=== PATIENT | male | born 1940 | race Caucasian/White ===

== ENCOUNTER 2020-05-11 06:55 | Observation (INO) | payer MEDICARE ==
[2020-05-07 09:33] VITALS: BP 126/90
[2020-05-07 12:28] LABS: BASOPHILS % (AUTO) 1.5 % (0.0-5.0); HEMATOCRIT 43.8 % (42-54); LYMPHOCYTES % (AUTO) 12.7 % (21.0-51.0); MEAN CORPUSCULAR HEMOGLOBIN 34.3 pg (27.0-33.0); MEAN CORPUSCULAR HGB CONC 33.1 g/dL (32.0-36.0); MEAN CORPUSCULAR VOLUME 103.5 fL (79-99); MONOCYTES % (AUTO) 9.1 % (3.0-13.0); NEUTROPHILS % (AUTO) 67.4 % (40.0-77.0); PLATELET COUNT (AUTO) 183 K/uL (130-400); RED BLOOD CELL COUNT(AUTO) 4.23 MIL/uL (4.50-6.20); RED CELL DISTRIBUTION WIDTH 16.7 % (11.0-15.5); WHITE BLOOD COUNT (AUTO) 6.6 K/uL (4.8-10.8)
[2020-05-07 12:44] LABS: CREATININE 1.5 mg/dL (0.5-1.5); POTASSIUM 3.3 mmol/L (3.5-5.1)
[2020-05-11] VITALS (11 sets, daily range): BP systolic 100–118; BP diastolic 53–85
[~2020-05-11] VITALS: Ht 190.5 cm; Wt 83.5 kg
[~2020-05-11 06:55] MED LIST: ALLO300T2 PO; AMIO200T6 PO; APIX5TAB PO; ASPI-1197 PO; CARV25TA PO; FURO40TA5 PO; MIDO10TA PO; PRAM1TAB7 PO; ROSU20TA31 PO; SPIR25TA6 PO
[2020-05-11] MEDS ORDERED: SODIUM CHLORIDE 0.9% 1000ML 1,000 ML IV ONE (07:21)
[2020-05-11] MEDS ORDERED: SODIUM CHLORIDE 0.9% 1000ML 1,000 ML IV SCH (08:00)
[2020-05-11] MEDS ORDERED: BUPIVACAINE/PF 0.25% 30ML VIAL IJ ONE (09:22)
[2020-05-11] MEDS ORDERED: MIDAZOLAM HCL 1 MG/ML 2ML VIAL ONE ×2 (09:23→11:03)
[2020-05-11] MEDS ORDERED: IODIXANOL 320 MG/ML 100 ML VIAL ONE (09:23)
[2020-05-11] MEDS ORDERED: MEPERIDINE-PF 25 MG/ML SYG ONE ×2 (09:23→11:03)
[2020-05-11] MEDS ORDERED: CEFAZOLIN SODIUM 1 GM VIAL ONE (09:23)
[2020-05-11] MEDS ORDERED: LIDOCAINE HCL 1% MDV 50ML VIAL ONE (09:23)
[2020-05-11 10:02] LABS: CREATININE 1.6 mg/dL (0.5-1.5); POTASSIUM 3.9 mmol/L (3.5-5.1)
[2020-05-11 10:04] LABS: INR 0.97 (0.85-1.15); PARTIAL THROMBOPLASTIN TIME 27.1 SEC (26.3-35.5); PROTHROMBIN TIME 10.5 SEC (9.6-11.6)
[2020-05-11] MEDS ORDERED: ACETAMINOPHEN-CODEINE 300/30MG TAB PO PRN (12:45)
[2020-05-11] MEDS ORDERED: MIDODRINE HCL 5 MG TABLET PO PRN (13:15)
[2020-05-11] MEDS: FUROSEMIDE 40 MG TABLET PO SCH (19:56)
[2020-05-11] MEDS: ACETAMINOPHEN-CODEINE 300/30MG TAB PO PRN (19:59)
[2020-05-11] MEDS: CARVEDILOL 25 MG TABLET PO SCH (21:00)
[2020-05-12 04:08] VITALS: BP 115/68
[2020-05-12] MEDS: ACETAMINOPHEN-CODEINE 300/30MG TAB PO PRN (05:17)
[2020-05-12 08:00] VITALS: BP 96/58
[2020-05-12] MEDS: FUROSEMIDE 40 MG TABLET PO SCH (08:21)
[2020-05-12] MEDS: CARVEDILOL 25 MG TABLET PO SCH (08:23)
[2020-05-12] MEDS ORDERED: ALLOPURINOL 300 MG TABLET PO SCH (09:00)
[2020-05-12] MEDS ORDERED: PRAMIPEXOLE DI-HCL 0.25 MG TABLET PO SCH (09:00)
[2020-05-12] MEDS ORDERED: SPIRONOLACTONE 25 MG TAB PO SCH (09:00)
[2020-05-12] MEDS ORDERED: ATORVASTATIN CALCIUM 40 MG TABLET PO SCH (09:00)
[2020-05-12] MEDS ORDERED: AMIODARONE HCL 200 MG TABLET PO SCH (09:00)
[2020-05-12 13:08] VITALS: BP 95/61
== END 2020-05-12 15:21 | disposition home or self-care (01) ==
LOC: DAH 06:55 → DAHIP 06:56 → 4DH 13:00
PROVIDERS: ADMIT Internal Medicine; ATTEND Internal Medicine
DX: I11.0 Hypertensive heart disease with heart failure (principal); I50.42 Chronic combined systolic (congestive) and diastolic (congestive) heart failure; I48.21 Permanent atrial fibrillation; I25.5 Ischemic cardiomyopathy; E78.5 Hyperlipidemia, unspecified; K76.9 Liver disease, unspecified; G47.33 Obstructive sleep apnea (adult) (pediatric); M10.9 Gout, unspecified; Z85.46 Personal history of malignant neoplasm of prostate; Z92.3 Personal history of irradiation; Z99.89 Dependence on other enabling machines and devices; Z90.49 Acquired absence of other specified parts of digestive tract; Z79.01 Long term (current) use of anticoagulants; Z79.899 Other long term (current) drug therapy; Z88.8 Allergy status to other drugs, medicaments and biological substances
CPT/HCPCS: 33225; 33249; 36415 ×2; 71045; 80048 ×2; 85025; 85610; 85730; 93005; A4215; A4216; A4221; A4222; A4223 ×3; A4606; A4663; C1769; C1882; C1895; C1900; G0378 ×19; J0690; J2175 ×2; J2250 ×2; J3490 ×2; J7030 ×2; Q9967; 99156; 99157

== ENCOUNTER 2020-10-11 14:17 | Inpatient (IN) | payer MEDICARE ==
[2020-10-11] VITALS (15 sets, daily range): BP systolic 82–127; BP diastolic 47–69
[~2020-10-11] VITALS: Ht 162.6 cm; Wt 73.9 kg
[~2020-10-11 14:17] MED LIST changes: -AMIO200T6 PO; +AMIO200T68 PO; -ASPI-1197 PO; -SPIR25TA6 PO
[2020-10-11] MEDS ORDERED: 0.9% NACL 250ML 250 ML IV ONE ×3 (15:04→17:26)
[2020-10-11 15:41] LABS: ABG BASE EXCESS -18.5 mmol/L (-2.0-3.0); ABG HCO3 8.3 mmol/L (21.0-28.0); ABG OXYGEN SATURATION 95.9 % (95.0-99.0); ABG PCO2 24 mmHg (35-48)
[2020-10-11 15:41] LABS: BASOPHILS % (AUTO) 1.5 % (0.0-5.0); EOSINOPHILS % (AUTO) 0.3 % (0.0-8.0); HEMATOCRIT 49.1 % (42-54); LYMPHOCYTES % (AUTO) 8.7 % (21.0-51.0); MEAN CORPUSCULAR HEMOGLOBIN 32.7 pg (27.0-33.0); MEAN CORPUSCULAR HGB CONC 32.6 g/dL (32.0-36.0); MEAN CORPUSCULAR VOLUME 100.2 fL (79-99); MONOCYTES % (AUTO) 7.6 % (3.0-13.0); NEUTROPHILS % (AUTO) 71.9 % (40.0-77.0); NUCLEATED RED BLOOD CELLS 0.6 % (0.0-0.19); PLATELET COUNT (AUTO) 107 K/uL (130-400); RED CELL DISTRIBUTION WIDTH 19.2 % (11.0-15.5); WHITE BLOOD COUNT (AUTO) 7.9 K/uL (4.8-10.8)
[2020-10-11 15:53] LABS: INR 1.03 (0.85-1.15); PROTHROMBIN TIME 11.2 SEC (9.6-11.6)
[2020-10-11 15:54] LABS: PARTIAL THROMBOPLASTIN TIME 33.4 SEC (26.3-35.5)
[2020-10-11 15:56] LABS: BILIRUBIN,TOTAL 1.6 mg/dL (0.2-1.0); CREATININE 5.8 mg/dL (0.5-1.5); TOTAL PROTEIN, SERUM 7.4 g/dL (6.0-8.3)
[2020-10-11 16:02] LABS: POTASSIUM 6.2 mmol/L (3.5-5.1)
[2020-10-11 16:41] LABS: CREATININE 5.7 mg/dL (0.5-1.5); POTASSIUM 5.9 mmol/L (3.5-5.1)
[2020-10-11] MEDS ORDERED: KAYEXALATE 15GM/60ML ONE (17:28)
[2020-10-11] MEDS ORDERED: SODIUM BICARB 50MEQ 50ML VIAL 50 ML ONE ×2 (17:28→23:12)
[2020-10-11] MEDS ORDERED: CALCIUM GLUC 1GM/10ML VIAL IV ONE (17:28)
[2020-10-11] MEDS ORDERED: DEXTROSE 50%-WATER 50 ML DISP.SYRIN IV ONE (17:28)
[2020-10-11] MEDS ORDERED: INSULIN HUMULIN R 100 UNIT/ML 3ML ONE (17:29)
[2020-10-11] MEDS ORDERED: 0.9%NACL 50ML 50 ML IV ONE (17:30)
[2020-10-11] MEDS ORDERED: NOREPINEPHRIN 4MG/NS 250ML 250 ML IV ONE (17:36)
[2020-10-11] MEDS ORDERED: NOREPINEPHRIN 4MG/NS 250ML 250 ML IV SCH (18:15)
[2020-10-11] MEDS ORDERED: ALBUTEROL INHALER 90MCG/INH IH ONE ×2 (18:21→18:50)
[2020-10-11] MEDS ORDERED: SODIUM BICARB 8.4% 50ML SYRING 150 MEQ in DEXTROSE 5%-WATER 1,000 ML IVP STA (20:42)
[2020-10-11] MEDS: SODIUM BICARB 50MEQ 50ML VIAL IV STA (20:44)
[2020-10-11] MEDS ORDERED: SODIUM CHLORIDE 1,000 MG TAB PO STA (21:44)
[2020-10-11] MEDS: MIDODRINE HCL 5 MG TABLET PO SCH (23:19)
[2020-10-11] MEDS: CEFTRIAXONE 1G VIAL IVP SCH (23:19)
[2020-10-11] MEDS: AZITHROMYCIN 250 MG TABLET PO SCH (23:20)
[2020-10-11] MEDS: DIGOXIN 125 MCG TABLET PO SCH (23:20)
[2020-10-11] MEDS: PRAMIPEXOLE DI-HCL 0.25 MG TABLET PO SCH (23:20)
[2020-10-12] VITALS (92 sets, daily range): BP systolic 76–165; BP diastolic 38–95
[2020-10-12] MEDS ORDERED: ALBUTEROL 0.083% 2.5 MG/3 ML INH IH PRN (00:45)
[2020-10-12] MEDS ORDERED: BENZONATATE 100 MG CAPSULE PO PRN (00:45)
[2020-10-12] MEDS: SODIUM BICARB 50MEQ 50ML VIAL IV STA (01:08)
[2020-10-12 03:09] LABS: BASOPHILS % (AUTO) 1.4 % (0.0-5.0); EOSINOPHILS % (AUTO) 0.5 % (0.0-8.0); HEMATOCRIT 44.5 % (42-54); LYMPHOCYTES % (AUTO) 5.6 % (21.0-51.0); MEAN CORPUSCULAR HEMOGLOBIN 32.7 pg (27.0-33.0); MEAN CORPUSCULAR HGB CONC 34.2 g/dL (32.0-36.0); MEAN CORPUSCULAR VOLUME 95.7 fL (79-99); MONOCYTES % (AUTO) 7.5 % (3.0-13.0); NEUTROPHILS % (AUTO) 76.9 % (40.0-77.0); NUCLEATED RED BLOOD CELLS 0.7 % (0.0-0.19); PLATELET COUNT (AUTO) 106 K/uL (130-400); RED BLOOD CELL COUNT(AUTO) 4.65 MIL/uL (4.50-6.20); RED CELL DISTRIBUTION WIDTH 18.6 % (11.0-15.5); WHITE BLOOD COUNT (AUTO) 8.6 K/uL (4.8-10.8)
[2020-10-12] MEDS ORDERED: APIX2.5T PO (03:16)
[2020-10-12] MEDS ORDERED: FURO40TA5 PO (03:18)
[2020-10-12] MEDS ORDERED: DIGO125T71 PO (03:23)
[2020-10-12] MEDS ORDERED: SPIR50TA5 PO (03:24)
[2020-10-12] MEDS ORDERED: LISI5TAB21 PO (03:25)
[2020-10-12] MEDS ORDERED: METO-391 PO (03:26)
[2020-10-12 03:28] LABS: ALBUMIN 3.3 g/dL (3.5-5.0); BILIRUBIN,TOTAL 1.5 mg/dL (0.2-1.0); CREATININE 4.9 mg/dL (0.5-1.5); CRP QUANTITATIVE 6.2 mg/L (0.00-9.0); MAGNESIUM 2.5 mg/dL (1.80-2.40); TOTAL PROTEIN, SERUM 6.1 g/dL (6.0-8.3)
[2020-10-12 04:31] LABS: ABG BASE EXCESS -3.9 mmol/L (-2.0-3.0); ABG HCO3 19.2 mmol/L (21.0-28.0); ABG OXYGEN SATURATION 98.4 % (95.0-99.0); ABG PCO2 30 mmHg (35-48)
[2020-10-12] MEDS: CEFTRIAXONE 1G VIAL IVP SCH ×2 (07:34→18:46)
[2020-10-12] MEDS: MIDODRINE HCL 5 MG TABLET PO SCH ×3 (08:13→21:00)
[2020-10-12] MEDS: APIXABAN 5 MG TABLET PO SCH ×2 (08:13→21:00)
[2020-10-12] MEDS: METOPROLOL TARTRATE 50 MG TAB PO SCH ×2 (08:14→21:00)
[2020-10-12] MEDS: SPIRONOLACTONE 25 MG TAB PO SCH (08:14)
[2020-10-12] MEDS ORDERED: ENOXAPARIN SODIUM 40 MG/0.4 ML SYRINGE SQ SCH (09:00)
[2020-10-12] MEDS: SODIUM BICARB 8.4% 50ML SYRING 150 MEQ in DEXTROSE 5%-WATER 1,000 ML IVP SCH ×2 (11:52→15:40)
[2020-10-12] MEDS: PRAMIPEXOLE DI-HCL 0.25 MG TABLET PO SCH (21:00)
[2020-10-12] MEDS: ATORVASTATIN 40 MG TABLET PO SCH (21:00)
[2020-10-12] MEDS: AZITHROMYCIN 250 MG TABLET PO SCH (21:00)
[2020-10-13] VITALS (28 sets, daily range): BP systolic 74–147; BP diastolic 42–102
[2020-10-13 04:25] LABS: BASOPHILS % (AUTO) 1.4 % (0.0-5.0); EOSINOPHILS % (AUTO) 1.1 % (0.0-8.0); HEMATOCRIT 44.5 % (42-54); LYMPHOCYTES % (AUTO) 10.7 % (21.0-51.0); MEAN CORPUSCULAR HGB CONC 33.3 g/dL (32.0-36.0); MEAN CORPUSCULAR VOLUME 96.1 fL (79-99); MONOCYTES % (AUTO) 14.2 % (3.0-13.0); NEUTROPHILS % (AUTO) 70.6 % (40.0-77.0); PLATELET COUNT (AUTO) 97 K/uL (130-400); RED BLOOD CELL COUNT(AUTO) 4.63 MIL/uL (4.50-6.20); RED CELL DISTRIBUTION WIDTH 18.6 % (11.0-15.5)
[2020-10-13 04:34] LABS: ALBUMIN 3.1 g/dL (3.5-5.0); CREATININE 3.3 mg/dL (0.5-1.5); CRP QUANTITATIVE 7.5 mg/L (0.00-9.0); MAGNESIUM 2.3 mg/dL (1.80-2.40); PHOSPHORUS 7.1 mg/dL (2.5-4.9); POTASSIUM 3.3 mmol/L (3.5-5.1)
[2020-10-13] MEDS: CEFTRIAXONE 1G VIAL IVP SCH ×2 (06:47→19:57)
[2020-10-13] MEDS: MIDODRINE HCL 5 MG TABLET PO SCH ×3 (08:16→21:22)
[2020-10-13] MEDS: METOPROLOL TARTRATE 50 MG TAB PO SCH ×2 (08:17→21:21)
[2020-10-13] MEDS: DIGOXIN 125 MCG TABLET PO SCH (08:17)
[2020-10-13] MEDS: APIXABAN 5 MG TABLET PO SCH ×2 (08:17→21:21)
[2020-10-13] MEDS: SPIRONOLACTONE 25 MG TAB PO SCH (08:18)
[2020-10-13] MEDS ORDERED: KCL 20 MEQ ERTAB PO SCH (11:15)
[2020-10-13 19:16] LABS: BASOPHILS % (AUTO) 1.6 % (0.0-5.0); EOSINOPHILS % (AUTO) 0.9 % (0.0-8.0); HEMATOCRIT 45.2 % (42-54); MEAN CORPUSCULAR HEMOGLOBIN 32.9 pg (27.0-33.0); MEAN CORPUSCULAR HGB CONC 33.4 g/dL (32.0-36.0); MEAN CORPUSCULAR VOLUME 98.5 fL (79-99); MONOCYTES % (AUTO) 12.8 % (3.0-13.0); NEUTROPHILS % (AUTO) 73.9 % (40.0-77.0); PLATELET COUNT (AUTO) 92 K/uL (130-400); RED BLOOD CELL COUNT(AUTO) 4.59 MIL/uL (4.50-6.20); RED CELL DISTRIBUTION WIDTH 18.8 % (11.0-15.5); WHITE BLOOD COUNT (AUTO) 7.6 K/uL (4.8-10.8)
[2020-10-13] MEDS: PRAMIPEXOLE DI-HCL 0.25 MG TABLET PO SCH (20:02)
[2020-10-13] MEDS: ATORVASTATIN 40 MG TABLET PO SCH (21:26)
[2020-10-13] MEDS: AZITHROMYCIN 250 MG TABLET PO SCH (21:58)
[2020-10-14] VITALS (7 sets, daily range): BP systolic 107–141; BP diastolic 49–70
[2020-10-14] MEDS ORDERED: ACETAMINOPHEN 325 MG TAB ONE ×2 (02:10→02:19)
[2020-10-14] MEDS ORDERED: ONDANSETRON 4MG TABLET ONE (02:11)
[2020-10-14] MEDS ORDERED: ACETAMINOPHEN 325 MG TAB PO PRN (02:15)
[2020-10-14] MEDS ORDERED: ONDANSETRON 4MG TABLET PO PRN (02:15)
[2020-10-14 03:43] LABS: MEAN CORPUSCULAR HEMOGLOBIN 32.5 pg (27.0-33.0); MEAN CORPUSCULAR HGB CONC 33.4 g/dL (32.0-36.0); MEAN CORPUSCULAR VOLUME 97.1 fL (79-99); PLATELET COUNT (AUTO) 99 K/uL (130-400); RED BLOOD CELL COUNT(AUTO) 4.53 MIL/uL (4.50-6.20); RED CELL DISTRIBUTION WIDTH 18.6 % (11.0-15.5); WHITE BLOOD COUNT (AUTO) 6.5 K/uL (4.8-10.8)
[2020-10-14 03:57] LABS: ALBUMIN 3.1 g/dL (3.5-5.0); CREATININE 2.6 mg/dL (0.5-1.5); CRP QUANTITATIVE 9.7 mg/L (0.00-9.0); PHOSPHORUS 4.7 mg/dL (2.5-4.9); TOTAL PROTEIN, SERUM 6.1 g/dL (6.0-8.3)
[2020-10-14 04:24] LABS: BAND NEUTROPHILS % (MANUAL) 1 % (0-2); BASOPHILS % (MANUAL) 1 % (0-2); LYMPHOCYTES % (MANUAL) 12 % (22-44); MAN.DIFF COMMENT-IMPRESSION MANUAL DIFFERENTIAL; MONOCYTES % (MANUAL) 8 % (2-9); SEGMENTED NEUTROPHILS % 78 % (40-70)
[2020-10-14 04:25] LABS: PLATELET MORPHOLOGY COMMENT DECREASED
[2020-10-14] MEDS: CEFTRIAXONE 1G VIAL IVP SCH (06:54)
[2020-10-14] MEDS: APIXABAN 5 MG TABLET PO SCH (08:56)
[2020-10-14] MEDS: SPIRONOLACTONE 25 MG TAB PO SCH (08:57)
[2020-10-14] MEDS: METOPROLOL TARTRATE 50 MG TAB PO SCH (08:57)
[2020-10-14] MEDS: MIDODRINE HCL 5 MG TABLET PO SCH ×2 (08:57→14:02)
[2020-10-14] MEDS ORDERED: DOXYCYCLINE HYCLATE 100 MG TABLET PO SCH (21:00)
== END 2020-10-14 17:50 | DRG 177 ==
LOC: EDH 14:17 → EDHIP 18:08 → 2BH 20:04
PROVIDERS: ADMIT Internal Medicine; ATTEND Internal Medicine
PROC: 5A09357 Assistance with Respiratory Ventilation, Less than 24 Consecutive Hours, Continuous Positive Airway Pressure (ICD-10-PCS; principal; 2020-10-12)
PROC: 5A09357 Assistance with Respiratory Ventilation, Less than 24 Consecutive Hours, Continuous Positive Airway Pressure (ICD-10-PCS; 2020-10-13)
DX: U07.1 COVID-19 (principal); J96.01 Acute respiratory failure with hypoxia; N17.9 Acute kidney failure, unspecified; I48.20 Chronic atrial fibrillation, unspecified; E87.2 Acidosis; E87.1 Hypo-osmolality and hyponatremia; I13.0 Hypertensive heart and chronic kidney disease with heart failure and stage 1 through stage 4 chronic kidney disease, or unspecified chronic kidney disease; J44.0 Chronic obstructive pulmonary disease with (acute) lower respiratory infection; N39.0 Urinary tract infection, site not specified; E87.0 Hyperosmolality and hypernatremia; E87.5 Hyperkalemia; G47.33 Obstructive sleep apnea (adult) (pediatric); G25.81 Restless legs syndrome; N18.2 Chronic kidney disease, stage 2 (mild); M10.9 Gout, unspecified; E86.0 Dehydration; I25.10 Atherosclerotic heart disease of native coronary artery without angina pectoris; I95.9 Hypotension, unspecified; I50.9 Heart failure, unspecified; E78.5 Hyperlipidemia, unspecified; R53.81 Other malaise; K76.9 Liver disease, unspecified; I71.4 Abdominal aortic aneurysm, without rupture; Z95.2 Presence of prosthetic heart valve; Z88.8 Allergy status to other drugs, medicaments and biological substances; Z79.01 Long term (current) use of anticoagulants; Z79.4 Long term (current) use of insulin; Z79.899 Other long term (current) drug therapy; Z85.46 Personal history of malignant neoplasm of prostate; Z86.79 Personal history of other diseases of the circulatory system; Z95.1 Presence of aortocoronary bypass graft; Z95.810 Presence of automatic (implantable) cardiac defibrillator
CPT/HCPCS: 36415; 36600; 71045; 76770; 80048; 80053; 82728; 82803; 82948; 83605; 83615; 83735; 84100; 84145; 84484; 85025; 85378; 85610; 85730; 86140; 86850; 86900; 86901; 87040; 87426; 93005; 94660; 97039; G0378; J0610; J0696; J1815; J3490; J7050; J7070; Q0162